=== PATIENT | female | born 1985 | race Caucasian/White ===

== ENCOUNTER 2016-10-14 10:53 | Emergency (ER) | payer OTHER ==
[2016-10-14 11:30] VITALS: BP 106/66; PULSE 80; RESP 16; TEMP 97.9; O2SAT 95
--- NOTE | 2016-10-14 12:01 | UCPHY ---
H & P Time Seen by Provider: 10/14/16 11:32 Patient Type: Established HPI/ROS: This patient has a sore throat of moderate intensity since last night. She reports some associated chills and myalgias. She came in early citing a busy schedule for the week and wants to be sure that if there is medication that could help her recover from the sore throat she would like to started. She reports no odynophagia. She still tolerating good p.o. intake. She took over- the-counter analgesics with partial relief. No other exacerbating or alleviating factors are noted. ROS: No fevers this morning. She reports no nasal congestion. She has no ear pain. No cough. No lightheadedness. 5 point ROS is otherwise negative Past Medical/Surgical History: Otherwise healthy Smoking Status: Never smoked Physical Exam: Physical Exam Vital signs are normal. General: No acute distress HEENT: Nose: Clear oropharynx: Mild posterior pharyngeal erythema is present with no exudates. No dysphonia. Ears: External canals and TMs are clear bilaterally. Eyes: Pupils equal and react to light. Extraocular motions are intact. Lungs: Clear to auscultation bilaterally. No respiratory distress. Cardiac: Regular rate and rhythm with no murmur gallop or rub Skin: No rash or pallor. Neuro: Alert . Initial differential diagnosis: Viral pharyngitis, strep pharyngitis, and influenza Constitutional: Initial Vital Signs Temperature (C) 36.6 C 10/14/16 11:28 Heart Rate 80 10/14/16 11:28 Respiratory Rate 16 10/14/16 11:28 Blood Pressure 106/66 10/14/16 11:28 O2 Sat (%) 95 10/14/16 11:28 O2 Delivery Mode Room Air Allergies/Adverse Reactions: gluten Allergy (Intermediate, Verified 10/14/16 11:30) GI DISTRESS Home Medications: Medication Instructions Recorded Adderall 5 mg Tablet 10/14/16 MDM/Departure - MDM Diagnostics: Rapid strep and rapid flu are both negative - Depart Disposition: Home, Routine, Self-Care Clinical Impression: Viral pharyngitis Instructions: Pharyngitis (ED) Additional Instructions: Diagnosis: Viral pharyngitis Your rapid flu and rapid strep were both negative. Plan: Ibuprofen and/or Tylenol for fevers or throat pain as needed. Drink plenty fluids Consider a zinc supplement until your symptoms improve Return for any significant worsening despite the treatment plan Referrals: Mabel Durbin MD [Primary Care Provider] - As per Instructions - PQRS PQRS Measurement: NA
== END 2016-10-14 12:02 | disposition home or self-care (01) ==
LOC: CED 10:53
DX: J02.8 Acute pharyngitis due to other specified organisms (principal)
CPT/HCPCS: 87400-PO; 87880-PO; 99214-PO; G0463-PO